=== PATIENT | male | born 1955 | race Caucasian/White ===

== ENCOUNTER 2022-01-23 07:30 | Outpatient (RCR) | payer MEDICARE, BC, SELFPAY | END 2022-03-08 07:38 | disposition home or self-care (01) | PROVIDERS: PCP Family Medicine; Visit Provider Physician Assistant Surgical | DX: Z98.890 Other specified postprocedural states (principal); Z51.89 Encounter for other specified aftercare | CPT/HCPCS: 97110; 97140; 97162 ==

== ENCOUNTER 2022-03-15 07:24 | Outpatient (CLI) | payer MEDICARE, BC, SELFPAY ==
--- NOTE | 2022-03-15 07:15 | CRLHL7_ITS ---
For Patients: As a result of the Century Cures Act, medical imaging exams and procedure reports are released immediately into your electronic medical record. You may view this report before your referring provider. If you have questions, please contact your health care provider. Indication: Lumbar pain. Technique: Multiplanar, multisequence MRI of the lumbar spine was performed without and with intravenous contrast. Contrast: 15 cc Dotarem. Comparison: MRI lumbar spine 07/24/2020. Findings: There are 5 lumbar type vertebral segments. Interval L2-4 fusion. Vertebral body heights are maintained without evidence of fracture. No marrow infiltrating process. Mild dextroconvex curvature to the lumbar spine. Postsurgical changes at the posterior paraspinal soft tissues at L2-L4. The conus medullaris terminates at L1, normal. Cauda equina appears unremarkable. T12-L1: No spinal canal or neural foraminal stenosis. Mild facet arthropathy. L1-2: Multislice desiccation. Minimal disc bulge without spinal canal narrowing. Mild left neural foraminal narrowing secondary to disc bulging facet arthropathy. Right neural foramina appears patent. L2-3: Interval postsurgical changes. Moderate disc height loss and desiccation. Mild spinal canal, without neural foraminal narrowing. Previously noted synovial cyst has improved. L3-4: Interval postsurgical changes of left facetectomy. Moderate disc height loss and desiccation. Previously noted synovial cyst has been resected. Significantly improved thecal sac patency. L4-5: Moderate disc height loss and desiccation. Disc bulge eccentric to the right. There is moderate right lateral recess narrowing with abutment of the descending right L5 nerve. Mild overall spinal canal narrowing. Moderate right and [id number] left neural foraminal narrowing secondary to disc bulge and facet arthropathy. Moderate facet arthropathy. Stable. L5-S1: Moderate disc height loss and desiccation. Disc bulge with small superimposed central disc protrusion. No spinal canal narrowing. Moderate right neural foraminal narrowing secondary to disc bulging facet hypertrophy. Left neural foramen is patent. Moderate facet arthropathy. Stable. Multiple renal cysts. Mild bilateral sacroiliac joint osteoarthritis. Impression: 1. Interval L2-4 fusion. 2. At L2-3, previously noted synovial cyst has improved. 3. At L3-4, left facetectomy with removal of synovial cyst and significantly improved thecal sac patency. 4. At L4-5, stable moderate right lateral recess narrowing with abutment of the descending right L5 nerve. Moderate right and [id number] left neural foraminal narrowing. 5. At L5-S1, moderate right neural foraminal narrowing. Dictated by Andres Johnson MD @ 03/15/2022 1:41:19 PM (Electronically Signed)
== END 2022-03-15 07:25 | disposition home or self-care (01) ==
LOC: MRI 07:27
PROVIDERS: Visit Provider Family Medicine
DX: M54.50 Low back pain, unspecified (principal); M51.27 Other intervertebral disc displacement, lumbosacral region; M51.36 Other intervertebral disc degeneration, lumbar region; Z98.1 Arthrodesis status
CPT/HCPCS: 72158; A9575

== ENCOUNTER 2022-04-09 09:29 | Outpatient (CLI) | payer MEDICARE, BC, SELFPAY | END 2022-04-09 09:30 | disposition home or self-care (01) | PROVIDERS: Visit Provider Family Medicine | DX: M51.36 Other intervertebral disc degeneration, lumbar region (principal); M54.16 Radiculopathy, lumbar region | CPT/HCPCS: 62323; J0702; Q9966 ==

== ENCOUNTER 2024-04-19 08:15 | Outpatient (RCR) | payer MEDICARE, BC, SELFPAY | END 2024-04-19 09:52 | disposition home or self-care (01) | PROVIDERS: Visit Provider Physician Assistant | DX: M48.062 Spinal stenosis, lumbar region with neurogenic claudication (principal); Z51.89 Encounter for other specified aftercare | CPT/HCPCS: 97110; 97140; 97163 ==